=== PATIENT | male | born 1990 | race Caucasian/White ===

== ENCOUNTER 2017-01-16 16:55 | Observation (INO) | payer OTHER ==
[~2017-01-16] VITALS: Ht 172.7 cm; Wt 89.0 kg
[2017-01-16 19:08] VITALS: BP 128/74; PULSE 91; TEMP 99.2
[2017-01-17 06:32] VITALS: BP 104/54; PULSE 72; TEMP 97.4
[2017-01-17 09:30] VITALS: BP 111/66; PULSE 80; TEMP 97.6
[2017-01-17] MEDS ORDERED: NORCO 325 MG-51 TAB PO (09:33)
[2017-01-17] MEDS ORDERED: LEVAQUIN 5500 MG/TA1 (09:33)
== END 2017-01-17 11:00 | disposition home or self-care (01) ==
LOC: SURG 16:55
DX: K61.1 Rectal abscess (principal); K21.9 Gastro-esophageal reflux disease without esophagitis; F17.210 Nicotine dependence, cigarettes, uncomplicated
CPT/HCPCS: G0378; G0379; J0690; J1100; J1885; J1956; J2405; J2704; J2765; J3010; J7120